=== PATIENT | male | born 1970 | race Caucasian/White ===

== ENCOUNTER 2022-11-06 21:36 | Observation (INO) | payer BC ==
[2022-11-06 22:19] LABS: Absolute Lymphocytes (CBC) 2.4 K/uL (0.7-4.9); Hematocrit 44.8 % (39.6-49.0); Lymphocytes % 27.2 % (15.3-44.8); MCV 85.4 fL (80-100); MPV 7.6 fL (7.6-11.3); RBC Red Blood Cell Count 5.24 M/uL (4.33-5.43)
[2022-11-06 22:25] LABS: Protime INR 1.54
[2022-11-06] MEDS ORDERED: dilTIAZem HCL 25 MG/5 ML VIAL IV ONE (22:25)
[2022-11-06] MEDS ORDERED: NA CHLORIDE 0.9% 1,000 ML ONE (22:25)
[2022-11-06] MEDS ORDERED: ASPIRIN 81 MG CHEWABLE TABLET ONE (22:26)
[2022-11-06] MEDS ORDERED: NA CHLORIDE 0.9% 100 ML ONE (22:26)
[2022-11-06 22:41] LABS: Albumin 3.9 g/dL (3.4-5.0); Bilirubin Direct 0.2 mg/dL (0-0.2); Bilirubin Indirect, Calculated 0.4 mg/dL (0.2-0.8); Bilirubin Total 0.6 mg/dL (0.2-1.0); Magnesium 1.9 mg/dL (1.6-2.4); Potassium 4.2 mEq/L (3.5-5.1); Protein, Total 7.6 g/dL (6.4-8.2); Troponin High Sensitivity 33.6 pg/mL (<58.9)
--- NOTE | 2022-11-06 22:43 | RAD REPORT ---
EXAM DESCRIPTION: Cristel Single View11/06/2022 10:23 pm CLINICAL HISTORY: CHEST PAIN COMPARISON: No comparisons TECHNIQUE: Portable AP view of the chest. FINDINGS: The lungs are clear. No pneumothorax or effusion. The cardiomediastinal contours are unre markable. IMPRESSION: No acute cardiopulmonary process.
[2022-11-07] MEDS ORDERED: NA CHLORIDE 0.9% 1,000 ML ONE (00:34)
--- NOTE | 2022-11-07 03:15 | ER ---
Nurse's Notes [facility] Name: Tom Soriano Age: 52 yrs Sex: Male : 1970 Arrival Date: 11/06/2022 Time: 21:36 Bed 18 Private MD: Diagnosis: Unspecified atrial flutter;Atrial flutter with rapid ventricular response Presentation: 11/06 21:47 Chief complaint: Patient states: States my watch was telling me that my HR was in the ll3 160s, upon arrival pt HR is 162, denies SBO, CP, or palpations, denies pain. Coronavirus screen: Vaccine status: Patient reports receiving the 2nd dose of the covid vaccine. At this time, the client does not indicate any symptoms associated with coronavirus-19. Ebola Screen: No symptoms or risks identified at this time. Initial Sepsis Screen: Does the patient meet any 2 criteria? HR > 90 bpm. Yes Does the patient have a suspected source of infection? No. Patient's initial sepsis screen is negative. Risk Assessment: Do you want to hurt yourself or someone else? Patient reports no desire to harm self or others. Onset of symptoms was November 06, 2022. 21:47 Method Of Arrival: Ambulatory ll3 21:47 Acuity: RENATA 2 ll3 Triage Assessment: 21:51 General: Appears comfortable, Behavior is calm, cooperative. Pain: Denies pain. ll3 Cardiovascular: Denies chest pain, Patient's skin is warm and dry. Respiratory: Respiratory effort is even, unlabored, Respiratory pattern is regular, symmetrical. Derm: Skin is pink, warm \T\ dry. Historical: - Allergies: 21:50 No Known Allergies; ll3 - PMHx: 21:50 Hypertensive disorder; Hypercholesterolemia; Diabetes mellitus; Atrial fibrillation; ll3 - PSHx: 21:51 cardiac ablasion; ll3 - Immunization history:: Client reports receiving the 2nd dose of the Covid vaccine. - Social history:: Smoking status: Patient denies any tobacco usage or history of. - Family history:: not pertinent. Screenin:[facility] ED Fall Risk Assessment (Adult) History of falling in the last 3 months, vc1 including since admission No falls in past 3 months (0 pts) Confusion or Disorientation No (0 pts) Intoxicated or Sedated No (0 pts) Impaired Gait No (0 pts) Mobility Assist Device Used No (0 pt) Altered Elimination No (0 pt) Score/Fall Risk Level 0 - 2 = Low Risk Oriented to surroundings, Maintained a safe environment, Educated pt \T\ family on fall prevention, incl call for assistance when getting out of bed. Abuse screen: Denies threats or abuse. Nutritional screening: No deficits noted. Tuberculosis screening: No symptoms or risk factors identified. Assessment: 22:00 Reassessment: See triage assessment. General: Appears in no apparent distress. vc1 comfortable, Behavior is calm, cooperative, appropriate for age. Cardiovascular: Reports None Patient's skin is warm and dry. Rhythm is sinus arrythmia. 23:00 Reassessment: No changes from previously documented assessment. Patient and/or family vc1 updated on plan of care and expected duration. Pain level reassessed. Patient is alert, oriented x 3, equal unlabored respirations, skin warm/dry/pink. 11/07 00:00 Reassessment: No changes from previously documented assessment. Patient and/or family vc1 updated on plan of care and expected duration. Pain level reassessed. Patient is alert, oriented x 3, equal unlabored respirations, skin warm/dry/pink. 00:00 Cardiovascular: Denies chest pain, Chest pain is denied. vc1 00:20 Reassessment: Pt heart rate back up to 106-124, cardizem drip restarted. vc1 00:20 Reassessment: Pt heart rate 80 showing a flutter on monitor. Cardizem drip paused per vc1 provider. 01:06 Reassessment: No changes from previously documented assessment. Patient and/or family vc1 updated on plan of care and expected duration. Pain level reassessed. Patient is alert, oriented x 3, equal unlabored respirations, skin warm/dry/pink. 02:00 Reassessment: No changes from previously documented assessment. Patient and/or family vc1 updated on plan of care and expected duration. Pain level reassessed. Patient is alert, oriented x 3, equal unlabored respirations, skin warm/dry/pink. Patient denies pain at this time. 03:00 Reassessment: No changes from previously documented assessment. Patient and/or family vc1 updated on plan of care and expected duration. Pain level reassessed. Patient is alert, oriented x 3, equal unlabored respirations, skin warm/dry/pink. Patient denies pain at this time. 04:00 Reassessment: No changes from previously documented assessment. Patient and/or family vc1 updated on plan of care and expected duration. Pain level reassessed. Patient is alert, oriented x 3, equal unlabored respirations, skin warm/dry/pink. Patient denies pain at this time. 07:00 Reassessment: Patient appears in no apparent distress at this time. Patient and/or db family updated on plan of care and expected duration. Pain level reassessed. Patient is alert, oriented x 3, equal unlabored respirations, skin warm/dry/pink. Report received. Upon receiving patient Cardizem drip has been stopped by previous shift RN. Pt HR is 77. General: Appears in no apparent distress. comfortable, Behavior is calm, cooperative. Neuro: Level of Consciousness is awake, alert, obeys commands, Oriented to person, place, time, situation. Respiratory: Airway is patent Respiratory effort is even, unlabored, Respiratory pattern is regular, symmetrical. 07:17 Reassessment: Called ICU to give report. States they do not have clean beds and that db there is not a nurse assigned to the room. States will call back when ready to receive report. Vital Signs: 11/06 21:47 BP 108 / 90; Pulse 161; Resp 17; Temp 99.1(O); Pulse Ox 96% on R/A; Weight 111.13 kg ll3 (R); Height 5 ft. 10 in. (R); Pain 0/10; 22:53 BP 109 / 60; Pulse 112; Resp 17; Pulse Ox 95% ; vc1 23:00 BP 122 / 82; Pulse 137; Resp 33; Pulse Ox 97% ; vc1 23:15 BP 104 / 62; Pulse 107; Resp 15; Pulse Ox 96% ; vc1 23:30 BP 96 / 70; Pulse 80; Resp 21; Pulse Ox 96% ; vc1 23:45 BP 90 / 63; Pulse 106; Resp 21; Pulse Ox 95% ; vc1 11/07 00:00 BP 98 / 67; Pulse 80; Resp 21; Pulse Ox 95% ; vc1 00:15 BP 92 / 61; Pulse 124; Resp 18; Pulse Ox 95% ; vc1 00:30 BP 98 / 68; Pulse 113; Resp 18; Pulse Ox 96% ; vc1 00:45 BP 102 / 59; Pulse 106; Resp 16; Pulse Ox 96% ; vc1 01:00 BP 100 / 77; Pulse 108; Resp 16; Pulse Ox 95% ; vc1 01:15 BP 100 / 77; Pulse 132; Resp 20; Pulse Ox 94% ; vc1 01:30 BP 112 / 71; Pulse 121; Resp 18; Pulse Ox 95% ; vc1 01:45 BP 104 / 75; Pulse 99; Resp 20; Pulse Ox 95% ; vc1 02:00 BP 106 / 65; Pulse 105; Resp 20; Pulse Ox 96% ; vc1 02:15 BP 105 / 68; Pulse 94; Resp 20; Pulse Ox 94% ; vc1 02:30 BP 95 / 69; Pulse 118; Resp 17; Pulse Ox 97% ; vc1 02:45 BP 91 / 72; Pulse 83; Resp 13; Pulse Ox 95% ; vc1 03:00 BP 99 / 64; Pulse 105; Resp 18; Pulse Ox 96% ; vc1 03:15 BP 93 / 70; Pulse 79; Resp 20; Pulse Ox 95% ; vc1 03:30 BP 100 / 67; Pulse 82; Resp 22; Temp 96; vc1 03:45 BP 97 / 67; Pulse 118; Resp 16; Pulse Ox 96% ; vc1 04:00 BP 113 / 77; Pulse 102; Resp 17; Pulse Ox 95% ; vc1 07:00 BP 94 / 58; Pulse 77; Resp 18; Pulse Ox 97% ; db 11/06 21:47 Body Mass Index 35.15 (111.13 kg, 177.8 cm) ll3 11/06 21:47 Pain Scale: Adult ll3 ED Course: 11/06 20:00 Inserted saline lock: 20 gauge in left antecubital area, using aseptic technique. Blood vc1 collected. 21:42 Patient arrived in ED. [id number] 21:50 Triage completed. ll3 21:51 Arm band placed on right wrist. Patient placed in an exam room, on a stretcher, on ll3 telemetry monitor, on pulse oximetry, Patient's private physician notified. 21:54 Dedrick Irwin MD is Attending Physician. sp4 22:00 Patient has correct armband on for positive identification. Bed in low position. Call vc1 light in reach. Client placed on continuous cardiac and pulse oximetry monitoring. NIBP monitoring applied. 22:25 XRAY Chest (1 view) In Process Unspecified. EDMS 22:40 Jojo Sibley RN is Primary Nurse. vc1 11/07 03:13 Jeramy Lucio MD is Hospitalizing Provider. sp4 04:00 No provider procedures requiring assistance completed. Patient admitted, IV remains in vc1 place. Administered Medications: 11/06 22:36 Drug: Diltiazem IVP 10 mg Route: IVP; Site: left antecubital; vc1 23:00 Follow up: Response: No adverse reaction; No change in condition vc1 22:36 Drug: Aspirin PO Chewable Tablet 324 mg Route: PO; vc1 23:00 Follow up: Response: No adverse reaction vc1 22:37 Drug: NS 0.9% IV 1000 ml Route: IV; Rate: 1 bolus; Site: left antecubital; vc1 23:37 Follow up: IV Status: Completed infusion; IV Intake: 1000ml vc1 22:37 Drug: Diltiazem IV 5 mg/hr Route: IV; Rate: calculated rate; Site: left antecubital; vc1 11/07 05:45 Follow up: IV Status: Infusion continued upon admission vc1 00:28 Drug: NS 0.9% IV 1000 ml Route: IV; Rate: 125 ml/hr; Site: left antecubital; vc1 04:30 Follow up: IV Status: Infusion continued upon admission vc1 04:01 Drug: Diltiazem PO 60 mg Route: PO; vc1 05:44 Follow up: Response: No adverse reaction vc1 04:01 Drug: Albumin IVPB 25 grams Volume: 100 ml; Route: IVPB; Site: left antecubital; vc1 04:52 Follow up: IV Status: Completed infusion; IV Intake: 100ml vc1 04:53 Drug: Albumin IVPB 25 grams Volume: 100 ml; Route: IVPB; Site: left antecubital; vc1 05:46 Follow up: IV Status: Completed infusion; IV Intake: 100ml vc1 Medication: 11/06 22:41 VIS not applicable for this client. vc1 Intake: 23:37 IV: 1000ml; Total: 1000ml. vc1 11/07 04:52 IV: 100ml; Total: 1100ml. vc1 05:46 IV: 100ml; Total: 1200ml. vc1 Outcome: 03:14 Decision to Hospitalize by Provider. sp4 04:00 Admitted to ER Hold. Please see [facility] for further documentation. vc1 04:00 Condition: good 04:00 Instructed on the need for admit. 08:31 Patient left the ED. Signatures: Dispatcher [employer] EDMS Georgia Chavez RN RN VidalMakenzie [email or web address] Maikel Daley RN RN ll3 Jojo Sibley RN RN vc1 Pat Stauffer RN RN db Dedrick Irwin MD MD sp4 Corrections: (The following items were deleted from the chart) 11/06 22:37 22:37 Diltiazem IVP 10 mg IVP in right antecubital vc1 vc1 11/07 02:31 02:15 BP 105 / 68; Pulse 94bpm; Resp 0bpm; Pulse Ox 94%; vc1 vc1 07:43 07:17 Reassessment: Called ICU to give report. States they do not have clean beds and db that there is not a nurse assigned to the room. States will call back when ready to receive report. db
--- NOTE | 2022-11-07 03:15 | EDPHYS ---
Physician Documentation [facility] Name: Tom Soriano Age: 52 yrs Sex: Male : 1970 Arrival Date: 11/06/2022 Time: 21:36 Bed 18 Private MD: ED Physician Dedrick Irwin HPI: 11/06 21:55 This 52 yrs old Male presents to ER via Ambulatory with complaints of sp4 ELEVATED HEART RATE. 22:10 52-year-old male presents with a cute onset of elevated heart rate starting this sp4 evening that he has noticed on his Apple Watch. Patient states [place] the beach [place] and [place] time at the beach when his Apple Watch alerted him to elevated heart rate. Patient has history of atrial fibrillation. History of diabetes history of hypertension . His medications include metoprolol 25 mg p.o. twice a day, losartan 100 mg daily, rosuvastatin 10 mg daily, metformin 1000 mg twice a day, Multaq 400 mg twice a day, Eliquis 5 mg twice a day, Aldactone 25 mg daily. . Patient denied any chest pain, palpitations, shortness of breath, or dizziness.. Multaq or dronedarone 400 mg twice a day apparently is used for persistent atrial fibrillation prevention. Historical: - Allergies: 21:50 No Known Allergies; ll3 - PMHx: 21:50 Hypertensive disorder; Hypercholesterolemia; Diabetes mellitus; Atrial fibrillation; ll3 - PSHx: 21:51 cardiac ablasion; ll3 - Immunization history:: Client reports receiving the 2nd dose of the Covid vaccine. - Social history:: Smoking status: Patient denies any tobacco usage or history of. - Family history:: not pertinent. ROS: 22:10 Constitutional: Negative for fever, chills, and weight loss, Eyes: Negative for injury, sp4 pain, redness, and discharge, ENT: Negative for injury, pain, and discharge, Neck: Negative for injury, pain, and swelling, Cardiovascular: Negative for chest pain, palpitations, and edema, Respiratory: Negative for shortness of breath, cough, wheezing, and pleuritic chest pain, Abdomen/GI: Negative for abdominal pain, nausea, vomiting, diarrhea, and constipation, Back: Negative for injury and pain, : Negative for injury, bleeding, discharge, and swelling, MS/Extremity: Negative for injury and deformity, Skin: Negative for injury, rash, and discoloration, Neuro: Negative for headache, weakness, numbness, tingling, and seizure, Psych: Negative for depression, anxiety, Allergy/Immunology: Negative for hives, rash, and allergies Endocrine: Negative for neck swelling, polydipsia, polyuria, polyphagia, and weight changes Hematologic/Lymphatic: Negative for swollen nodes, abnormal bleeding, and unusual bruising Exam: 22:10 Constitutional: This is a well developed, well nourished patient who is awake, alert, sp4 and in no acute distress. Head/Face: Normocephalic, atraumatic. Eyes: Pupils equal round and reactive to light, extra-ocular motions intact. Lids and lashes normal. Conjunctiva and sclera are not injected. Cornea within normal limits. Periorbital areas with no swelling, redness, or edema. ENT: Nares patent. No nasal discharge, no septal abnormalities noted. Tympanic membranes are normal and external auditory canals are clear. Oropharynx with no redness, swelling, or masses, exudates, or evidence of obstruction, uvula midline. Mucous membranes moist. Neck: Trachea midline, no thyromegaly or masses palpated, and no cervical lymphadenopathy. Supple, full range of motion without nuchal rigidity, or vertebral point tenderness. Chest/axilla: Normal chest wall appearance and motion. Nontender with no deformity. No lesions are appreciated. Cardiovascular: Rapid irregular tachycardia, no gallops, murmurs, or rubs. Normal PMI, no JVD. No pulse deficits. Respiratory: Lungs have equal breath sounds bilaterally, clear to auscultation and percussion. No rales, rhonchi or wheezes noted. No increased work of breathing, no retractions or nasal flaring. Abdomen/GI: Soft, non-tender, with normal bowel sounds. No distension or tympany. No guarding or rebound. No evidence of tenderness throughout. Back: No spinal tenderness. No costovertebral tenderness. Skin: Warm, dry with normal turgor. Normal color with no rashes, no lesions, and no evidence of cellulitis. MS/ Extremity: Pulses equal, no cyanosis. Neurovascular intact. Full, normal range of motion. Neuro: Awake and alert, GCS 15, oriented to person, place, time, and situation. Cranial nerves II-XII grossly intact. Motor strength 5/5 in all extremities. Sensory grossly intact. Psych: Awake, alert, with orientation to person, place and time. Behavior, mood, and affect are within normal limits 22:16 ECG was reviewed by the Attending Physician. EKG rate 161, EKG time 2159, there is sp4 atrial flutter 2-1 AV conduction, with a rightward axis, no ST elevation visualized 11/07 03:15 Repeat EKG at 2353 atrial flutter with arrival AV block with PVCs prolonged QT, rate sp4 96, no ST elevation or depression. Vital Signs: 11/06 21:47 BP 108 / 90; Pulse 161; Resp 17; Temp 99.1(O); Pulse Ox 96% on R/A; Weight 111.13 kg ll3 (R); Height 5 ft. 10 in. (R); Pain 0/10; 22:53 BP 109 / 60; Pulse 112; Resp 17; Pulse Ox 95% ; vc1 23:00 BP 122 / 82; Pulse 137; Resp 33; Pulse Ox 97% ; vc1 23:15 BP 104 / 62; Pulse 107; Resp 15; Pulse Ox 96% ; vc1 23:30 BP 96 / 70; Pulse 80; Resp 21; Pulse Ox 96% ; vc1 23:45 BP 90 / 63; Pulse 106; Resp 21; Pulse Ox 95% ; vc1 11/07 00:00 BP 98 / 67; Pulse 80; Resp 21; Pulse Ox 95% ; vc1 00:15 BP 92 / 61; Pulse 124; Resp 18; Pulse Ox 95% ; vc1 00:30 BP 98 / 68; Pulse 113; Resp 18; Pulse Ox 96% ; vc1 00:45 BP 102 / 59; Pulse 106; Resp 16; Pulse Ox 96% ; vc1 01:00 BP 100 / 77; Pulse 108; Resp 16; Pulse Ox 95% ; vc1 01:15 BP 100 / 77; Pulse 132; Resp 20; Pulse Ox 94% ; vc1 01:30 BP 112 / 71; Pulse 121; Resp 18; Pulse Ox 95% ; vc1 01:45 BP 104 / 75; Pulse 99; Resp 20; Pulse Ox 95% ; vc1 02:00 BP 106 / 65; Pulse 105; Resp 20; Pulse Ox 96% ; vc1 02:15 BP 105 / 68; Pulse 94; Resp 20; Pulse Ox 94% ; vc1 02:30 BP 95 / 69; Pulse 118; Resp 17; Pulse Ox 97% ; vc1 02:45 BP 91 / 72; Pulse 83; Resp 13; Pulse Ox 95% ; vc1 03:00 BP 99 / 64; Pulse 105; Resp 18; Pulse Ox 96% ; vc1 03:15 BP 93 / 70; Pulse 79; Resp 20; Pulse Ox 95% ; vc1 03:30 BP 100 / 67; Pulse 82; Resp 22; Temp 96; vc1 03:45 BP 97 / 67; Pulse 118; Resp 16; Pulse Ox 96% ; vc1 04:00 BP 113 / 77; Pulse 102; Resp 17; Pulse Ox 95% ; vc1 07:00 BP 94 / 58; Pulse 77; Resp 18; Pulse Ox 97% ; db 11/06 21:47 Body Mass Index 35.15 (111.13 kg, 177.8 cm) ll3 11/06 21:47 Pain Scale: Adult ll3 MDM: 11/06 22:15 Patient medically screened. sp4 11/07 03:16 Differential Diagnosis Atrial fibrillation with RVR, atrial flutter with RVR, SVT, sp4 ventricular arrhythmia, narrow complex tachycardia. Data reviewed: vital signs, nurses notes, old medical records, lab test result(s), cardiac enzymes, CBC, electrolytes, hepatic panel, EKG, radiologic studies, plain films. Consideration of Admission/Observation Patient was admitted/placed on observation. Escalation of care including admission/observation considered. Management of patient was discussed with the following: Hospitalist: Discussed with admitting hospitalist team . [employer] Registrar: Discussed with fundraising consultant. ED course: Repeat EKG reveals atrial flutter with arrival AV block, patient did slow down significantly with IV Cardizem infusion as low as 79 bpm. Pressure remains low but stable 99/64. Provide IV albumin to improve blood pressure. Patient at this time may be admitted to telemetry floor , Will switch to p.o. Cardizem in emergency department. 03:18 ED course: Labs today reveal mild elevated creatinine 1.37, normal CBC, normal LFT, sp4 negative troponin 33.6, however BNP is elevated 1487. Chest x-ray reveals no acute cardiopulmonary process no signs of acute heart failure. 11/06 22:04 Order name: Basic Metabolic Panel; Complete Time: 00:18 sp4 11/06 22:04 Order name: CBC with Diff; Complete Time: 00:18 sp4 11/06 22:04 Order name: LFT's; Complete Time: 00:18 sp4 11/06 22:04 Order name: Magnesium; Complete Time: 00:18 sp4 11/06 22:04 Order name: NT PRO-BNP; Complete Time: 00:18 sp4 11/06 22:04 Order name: PT-INR; Complete Time: 00:18 sp4 11/06 22:04 Order name: Troponin HS; Complete Time: 00:18 sp4 11/07 03:35 Order name: Basic Metabolic Panel EDMS 11/07 03:35 Order name: CBC with Automated Diff EDMS 11/07 03:35 Order name: Protime (+INR) EDMS 11/07 03:35 Order name: Magnesium EDMS 11/07 03:35 Order name: Magnesium EDMS 11/07 03:35 Order name: Magnesium EDMS 11/07 08:05 Order name: Glucose, Ancillary Testing EDMS 11/06 22:04 Order name: XRAY Chest (1 view); Complete Time: 00:18 sp4 11/06 22:04 Order name: EKG; Complete Time: 22:05 sp4 11/07 03:35 Order name: Heart Healthy EDMS 11/07 03:35 Order name: EKG Electrocardiogram EDMS 11/06 22:04 Order name: Cardiac monitoring; Complete Time: 22:36 sp4 11/06 22:04 Order name: EKG - Nurse/Tech; Complete Time: 22:36 sp4 11/06 22:04 Order name: IV Saline Lock; Complete Time: 22:36 sp4 11/06 22:04 Order name: Labs collected and sent; Complete Time: 22:36 sp4 11/06 22:04 Order name: O2 Per Protocol; Complete Time: 22:36 sp4 11/06 22:04 Order name: O2 Sat Monitoring; Complete Time: 22:36 sp4 EC/04 22:16 Rate is 161 beats/min. Rhythm is regular, A flutter. Right axis deviation noted. T sp4 waves are Normal. No ST changes noted. Interpreted by me. Administered Medications: 22:36 Drug: Diltiazem IVP 10 mg Route: IVP; Site: left antecubital; vc1 23:00 Follow up: Response: No adverse reaction; No change in condition vc1 22:36 Drug: Aspirin PO Chewable Tablet 324 mg Route: PO; vc1 23:00 Follow up: Response: No adverse reaction vc1 22:37 Drug: NS 0.9% IV 1000 ml Route: IV; Rate: 1 bolus; Site: left antecubital; vc1 23:37 Follow up: IV Status: Completed infusion; IV Intake: 1000ml vc1 22:37 Drug: Diltiazem IV 5 mg/hr Route: IV; Rate: calculated rate; Site: left antecubital; vc1 11/07 05:45 Follow up: IV Status: Infusion continued upon admission vc1 00:28 Drug: NS 0.9% IV 1000 ml Route: IV; Rate: 125 ml/hr; Site: left antecubital; vc1 04:30 Follow up: IV Status: Infusion continued upon admission vc1 04:01 Drug: Diltiazem PO 60 mg Route: PO; vc1 05:44 Follow up: Response: No adverse reaction vc1 04:01 Drug: Albumin IVPB 25 grams Volume: 100 ml; Route: IVPB; Site: left antecubital; vc1 04:52 Follow up: IV Status: Completed infusion; IV Intake: 100ml vc1 04:53 Drug: Albumin IVPB 25 grams Volume: 100 ml; Route: IVPB; Site: left antecubital; vc1 05:46 Follow up: IV Status: Completed infusion; IV Intake: 100ml vc1 Disposition Summary: 11/07/22 03:14 Hospitalization Ordered Hospitalization Status: Inpatient Admission sp4 Provider: Jeramy Lucio Condition: Stable sp4 Problem: new sp4 Symptoms: have improved sp4 Bed/Room Type: Standard sp4 Location: Intensive Care Unit(11/07/22 07:13) rv1 Room Assignment: 5-(11/07/22 07:13) rv1 Diagnosis - Unspecified atrial flutter sp4 - Atrial flutter with rapid ventricular response sp4 Forms: - Medication Reconciliation Form sp4 - SBAR form sp4 Signatures: Dispatcher [employer] EDClaudia Nava RN RN mw Blanchard, Shelby, RN RN ss Maikel Daley RN RN 3 Jojo Sibley RN RN vc1 Nadeen Gibson rv1 Dedrick Irwin MD MD sp4 Corrections: (The following items were deleted from the chart) 04:00 03:14 Telemetry/MedSurg (Inpatient) sp4 vc1 04:00 03:14 sp4 vc1 04:09 04:00 Intensive Care Unit vc1 mw 04:09 04:00 vc1 mw 07:13 04:09 [facility] ER HOLD mw ss 07:13 04:09 ERHOLD- mw ss 07:13 07:13 Intensive Care Unit ss rv1 07:13 07:13 5- ss rv1
[2022-11-07] MEDS ORDERED: ACETAMINOPHEN 500 MG TAB PO PRN (03:27)
[2022-11-07] MEDS ORDERED: ONDANSETRON 4 MG/2 ML VIAL IV PRN (03:27)
--- NOTE | 2022-11-07 03:27 | P.HP ---
Certification for Inpatient With expected LOS: <2 Midnights Patient will require the following post-hospital care: None Practitioner: I am a practitioner with admitting privileges, knowledge of patient current condition, hospital course, and medical plan of care. Services: Services provided to patient in accordance with Admission requirements found in Title 42 Section 412.3 of the Code of Federal Regulations <Deidre Vela - Last Filed: 11/07/22 04:39> Patient History Date of Service: 11/07/22 Reason for admission: elevated heart rate History of Present Illness: 52-year-old male with past medical history of HTN, Atrial fibrillation on eliquis, HLD, diabetes presents with elevated heart rate. He reports no symptoms, he put on his apple watch noted elevated heart rate. He is here on vacation. He reports history of afib/alutter with x2 cardioversion at [facility] [place] with Dr Mendes. He reports medication compliance. He denies shortness of breath, chest pain, edema, dizziness, diaphoresis. His medications include metoprolol 25 mg p.o. twice a day, losartan 100 mg daily, rosuvastatin 10 mg daily, metformin 1000 mg twice a day, Multaq 400 mg twice a day, Eliquis 5 mg twice a day, Aldactone 25 mg daily. . Patient denied any chest pain, palpitations, shortness of breath, or dizziness.. Multaq or dronedarone 400 mg twice a day apparently is used for persistent atrial fibrillation prevention. Home medications list reviewed: Yes - Past Medical/Surgical History Diabetic: Yes -: Atrial Fibrillation -: Atrial Flutter -: Hyperlipidemia -: Hypertension -: Diabetes type 2 -: x2 [place] -: Cardioversion - Family History Mother -: Heart disease, Other (see notes) (atrial fibrillation) - Social History Smoking Status: Never smoker Alcohol use: Yes Caffeine use: Yes Place of Residence: Home <Deidre Vela - Last Filed: 11/07/22 04:39> Date of Service: 11/07/22 <Jeramy Lucio - Last Filed: 11/07/22 14:59> Allergies No Known Allergies Allergy (Unverified 11/07/22 04:11) Home Medications: Apixaban [Eliquis] 5 mg PO BID 11/07/22 Dronedarone HCl [Multaq] 400 mg PO BID 11/07/22 Losartan Potassium 100 mg PO DAILY 11/07/22 Metformin HCl 1,000 mg PO BID 11/07/22 Metoprolol Tartrate [Lopressor*] 25 mg PO BID 11/07/22 Rosuvastatin [Crestor*] 10 mg PO BEDTIME 11/07/22 Physical Examination - Physical Exam General: Alert, In no apparent distress, Oriented x3 HEENT: Atraumatic, Normocephalic, PERRLA Neck: Supple, 2+ carotid pulse no bruit Respiratory: Clear to auscultation bilaterally, Normal air movement Cardiovascular: No edema, Normal pulses, Irregular heart rate/rhythm Capillary refill: <2 Seconds Gastrointestinal: Normal bowel sounds Musculoskeletal: No clubbing, No swelling Integumentary: No rashes, No breakdown Neurological: Normal speech, Cranial nerves 3-12 intact - Studies Laboratory Data (last 24 hrs) 11/06/22 22:12: PT 16.9 H, INR 1.54 11/06/22 22:12: WBC 8.80, Hgb 14.3, Hct 44.8, Plt Count 394 11/06/22 22:12: Sodium 138, Potassium 4.2, BUN 17, Creatinine 1.37 H, Glucose 103, Magnesium 1.9, Total Bilirubin 0.6, AST 30, ALT 43, Alkaline Phosphatase 82 <eDidre Vela - Last Filed: 11/07/22 04:39> - Studies Laboratory Data (last 24 hrs) 11/06/22 22:12: PT 16.9 H, INR 1.54 11/06/22 22:12: WBC 8.80, Hgb 14.3, Hct 44.8, Plt Count 394 11/06/22 22:12: Sodium 138, Potassium 4.2, BUN 17, Creatinine 1.37 H, Glucose 103, Magnesium 1.9, Total Bilirubin 0.6, AST 30, ALT 43, Alkaline Phosphatase 82 <Jeramy Lucio - Last Filed: 11/07/22 14:59> Assessment and Plan - Problems (Diagnosis) (1) Abnormal EKG Current Visit: Yes Status: Acute Plan: Abnormal EKG X 2 Reviewed with Cardiology per ED MD, No STEMI x 2 EKG sent confirmed Continue Telemetry Patient has zero compliant of Chest pain (2) Atrial flutter Onset Date: ~11/06/22 Current Visit: Yes Status: Acute Plan: Admit to ICU Telemetry cardioversion in ED Cardiology Consult Cardizem gtt, Resume home medications for rate control (3) Atrial fibrillation Onset Date: ~11/06/22 Current Visit: Yes Status: Acute Plan: Cardizem GTT Resume medications for rate control cardiology Consult (4) Hypertension Current Visit: Yes Status: Chronic Plan: resume approp home medications Qualifiers: Hypertension type: primary hypertension Qualified Code(s): I10 - Essential (primary) hypertension (5) Combined hyperlipidemia Current Visit: Yes Status: Chronic Plan: Resume approp home medications (6) Diabetes type 2, controlled Current Visit: Yes Status: Chronic Plan: AC AC HS, SSI Diabetic Diet (7) Chronic anticoagulation Current Visit: Yes Status: Acute Plan: Continue eliquis PT/INR in am Discharge Plan: Home Plan to discharge in: 24 Hours - Advance Directives Does patient have a Living Will: No Does patient have a Durable POA for Healthcare: No - Code Status/Comfort Care Code Status Assessed: Yes Code Status: Full Code Physician Review: Patient Assessed, Agree with Above Assessment and Plan Critical Care: Yes Time Spent Managing Pts Care (In Minutes): 70 <Deidre Vela - Last Filed: 11/07/22 04:39> Physician Review Additional Text: Patient seen and examined on rounds this morning Continues in A-fib Blood pressure 90s systolic in the ED, with some slight improvement this morning on arrival to the ICU. On Cardizem drip Briefly discussed with cardiology, recommended to discontinue Cardizem drip, start sotalol 80 mg twice daily patient denies dyspnea/chest pain / palpitations Per patient and : He started with Covid last year, then later developed afib, was told he had EF in 40s A few weeks ago hospitalized for shortness of breath and had >10lb weight gain, found to have pulmonary edema His medications were changed and he received diuretics - losartan/lisinopril was changed and he diuresed quickly within 1-2 days On repeat echo, he was told he had EF: ~35% recently. For afib, he was on cardizem, underwent ablation, and cardioverted twice - with most recent cardioversion this past (11/01). After cardioversion, he was started on / prescribed Multaq, which is a new med for him in the last few days. He is here on vacation, [place] the [place] in the sun, hydrating with water. No recent illness, no new meds, no alcohol. <Jeramy Lucio - Last Filed: 11/07/22 14:59>
[2022-11-07] MEDS ORDERED: ALBUMIN HUMAN 25% 200 ML IV ONE (03:44)
[2022-11-07] MEDS ORDERED: DILTIAZEM HCL 60 MG TAB ONE (03:45)
[2022-11-07] MEDS ORDERED: DILTIAZEM INJ 125 MG/25 ML 125 MG in NA CHLORIDE 0.9% 100 ML IV SCH (05:00)
[2022-11-07 05:36] VITALS: BMI 35.1
[2022-11-07 06:40] LABS: Absolute Lymphocytes (CBC) 1.7 K/uL (0.7-4.9); Hematocrit 40.1 % (39.6-49.0); Lymphocytes % 23.6 % (15.3-44.8); MCV 85.2 fL (80-100); MPV 7.7 fL (7.6-11.3); RBC Red Blood Cell Count 4.71 M/uL (4.33-5.43)
[2022-11-07 06:41] LABS: Protime INR 1.64
[2022-11-07] MEDS: INSULIN -REGULAR HUMAN 50 UNIT/0.5 ML ML SQ SCH ×4 (07:30→21:00)
--- NOTE | 2022-11-07 07:53 | P.PN ---
Date of Service: 11/08/22 Subjective: remains in afib/aflutter, HR in 120s no new / worsening problems denies chest pain, breathing feels fine ROS: 10 point ROS as noted above, otherwise negative Physical Exam: GEN: Alert, oriented, NAD HEENT: Normal conjunctiva, sclera anicteric CV: Regular rate and rhythm, no edema Pulm: Nonlabored respirations on room air ABD: Soft, nontender, nondistended MSK: No joint tenderness Integumentary: No rashes Neuro: Normal speech, normal affect vitals reviewed Problem List: Atrial Fibrillation Hypertension Hyperlipidemia DM2 VTE: Code: Dispo:
[2022-11-07] MEDS: SOTALOL HCL 80 MG TAB PO SCH ×2 (10:56→17:14)
--- NOTE | 2022-11-07 12:27 | EKG ---
Test Date: 2022-11-07 Test Time: 04:28:34 Out And Out Cigar Maker Hand: KELLEE MEASUREMENT RESULTS: Intervals: Rate: 96 ND: QRSD: 78 QT: 388 QTc: 490 [place]: P: 86 ND: QRS: 82 T: 91 INTERPRETIVE STATEMENTS: Atrial flutter with variable AV block Lateral infarct, age undetermined Inferior injury pattern ACUTE DC / STEMI Abnormal ECG Compared to ECG 11/06/2022 23:53:58 Ventricular premature complex(es) no longer present ST (T wave) deviation no longer present Prolonged QT interval no longer present Myocardial infarct finding still present Electronically Signed On 11-07-22 12:27:30 CDT by Jimi Bonds
--- NOTE | 2022-11-07 12:28 | EKG ---
Test Date: 2022-11-06 Test Time: 23:53:58 Silverware Buffer: RONEY MEASUREMENT RESULTS: Intervals: Rate: 96 [place]: QRSD: 78 QT: 400 QTc: 505 [place]: P: VA: QRS: 65 T: 99 INTERPRETIVE STATEMENTS: Atrial flutter with variable AV block with premature ventricular or aberrantly conducted complexes ST elevation, consider inferior injury or acute infarct Prolonged QT Abnormal ECG Compared to ECG 11/06/2022 23:52:23 Ventricular premature complex(es) now present Prolonged QT interval now present ST (T wave) deviation still present Electronically Signed On 11-07-22 12:27:54 CDT by Jimi Bonds
--- NOTE | 2022-11-07 12:29 | EKG ---
Test Date: 2022-11-06 Test Time: 21:59:21 Remedy Developer: LL MEASUREMENT RESULTS: Intervals: Rate: 161 MA: QRSD: 86 QT: 252 QTc: 412 [place]: P: MA: QRS: 100 T: 67 INTERPRETIVE STATEMENTS: Atrial flutter with 2:1 AV conduction Rightward axis Abnormal ECG No previous ECG available for comparison Electronically Signed On 11-07-22 12:28:45 CDT by Jimi Bonds
--- NOTE | 2022-11-07 12:29 | EKG ---
Test Date: 2022-11-06 Test Time: 23:52:23 Insulation Hoseman: RONEY MEASUREMENT RESULTS: Intervals: Rate: 108 CT: 154 QRSD: 84 QT: 366 QTc: 490 [place]: P: 96 CT: 154 QRS: 67 T: 104 INTERPRETIVE STATEMENTS: Atrial flutter with RVR Abnormal ECG Compared to ECG 11/06/2022 21:59:21 Right-axis deviation no longer present Electronically Signed On 11-07-22 12:28:26 CDT by Jimi Bonds
[2022-11-07] MEDS: APIXABAN 5 MG TABLET PO SCH ×2 (13:32→21:03)
[2022-11-07 14:42] LABS: Troponin High Sensitivity 39.7 pg/mL (<58.9)
--- NOTE | 2022-11-07 16:51 | CON ---
Date of Consultation: 11/07/2022 Reason For Consultation: Atrial flutter with rapid ventricular response. History Of Present Illness: This is a 52-year-old male with history of hypertension, atrial fibrilla tion, dyslipidemia, diabetes, status post AFib ablation, comes in with palpitations and elevated hear t rate. He had a cardioversion recently and was placed on Multaq, no Eliquis. Feels well. No other symptoms. Past Medical History: Atrial fibrillation, dyslipidemia, hypertension, diabetes. Medications: Refer to reconciliation sheet for detailed list. Allergies: NO KNOWN DRUG ALLERGIES. Family History: No premature coronary artery disease or cancer. Social History: Does not smoke or drink. Does not use any drugs. Review of Systems: All systems reviewed and they were negative except what mentioned in HPI. Physical Examination: Vital Signs: Reviewed. Head and Neck: Pupils are equal, reactive to light. Intact eye movements. No JVD. No cervical lym phadenopathy. Neck is supple. Thyroid is not enlarged. Lungs: Clear to auscultation bilaterally. No rhonchi, wheezing, or crackles. No accessory muscle u se. Heart: Irregular. No extra sounds. Tachycardic. Abdomen: Soft, nontender. Bowel sounds positive. No organomegaly. No masses or hernia. No rigidi ty or rebound. Extremities: No edema, clubbing, or cyanosis. Intact pulses. Skin: No rash. Neurologic: Alert, awake. No acute focal deficits appreciated. Lymph Nodes: No cervical or axillary lymphadenopathy. Investigations: Labs were reviewed. Assessment And Recommendations: 1.Atrial flutter with rapid ventricular response. Start sotalol 80 mg twice a day, discontinue Mult aq, and resume Eliquis 5 mg twice a day and by tomorrow noon if continues to be in atrial flutter, we will perform JHONATHAN-guided cardioversion. 2.Elevated NT-proBNP, likely diastolic heart failure. Obtain an echocardiogram and reassess. /HELENE Voice ID: [id number] Report ID: [id number]
[2022-11-08 05:29] LABS: Magnesium 2.4 mg/dL (1.6-2.4); Potassium 3.9 mEq/L (3.5-5.1)
[2022-11-08] MEDS ORDERED: POTASSIUM 25 MEQ EFFERV TAB PO ONE (06:04)
[2022-11-08] MEDS: SOTALOL HCL 80 MG TAB PO SCH (06:17)
[2022-11-08] MEDS: INSULIN -REGULAR HUMAN 50 UNIT/0.5 ML ML SQ SCH ×2 (07:29→11:30)
[2022-11-08] MEDS: APIXABAN 5 MG TABLET PO SCH (08:52)
[2022-11-08 10:35] VITALS: TEMP 97.9
[2022-11-08] MEDS ORDERED: MIDAZOLAM HCL 10 ML ONE (11:18)
[2022-11-08] MEDS ORDERED: METOPROLOL TARTRATE 5 MG/5 ML INJ IV ONE (11:18)
[2022-11-08] MEDS ORDERED: HYDRALAZINE HCL 20 MG/ML VIAL ONE (11:18)
[2022-11-08] MEDS ORDERED: ATROPINE SULF 1 MG/10 ML SYR IV ONE (11:19)
[2022-11-08] MEDS ORDERED: FLUMAZENIL 0.1 MG/ML (5 mL VIAL) IV ONE (11:19)
[2022-11-08] MEDS ORDERED: LIDOCAINE VISCOUS 2% SOLN 15 ML UDC ONE (11:19)
[2022-11-08] MEDS ORDERED: PHENOL 1.4% ORAL SPRAY 180ML ONE (11:20)
[2022-11-08] MEDS ORDERED: NA CHLORIDE 0.9% 500 ML ONE (11:50)
[2022-11-08] MEDS ORDERED: ADENOSINE 6 MG/ 2ML VIAL IV ONE ×2 (12:32→12:34)
--- NOTE | 2022-11-08 13:35 | P.DS ---
Admission Date: 11/07/22 Discharge Date: 11/08/22 Disposition: ROUTINE DISCHARGE Discharge Condition: GOOD Reason for Admission: elevated heart rate Consultations: Cardiology - Dr. Bonds Brief History of Present Illness: 52 yo M, PMH: HTN, Atrial fibrillation on eliquis, HLD, diabetes Patient presents with elevated heart rate. He reports no symptoms, he put on his apple watch noted elevated heart rate. He is here on vacation. He reports history of afib/alutter with x2 cardioversion at [facility] with Dr Mendes. He reports medication compliance. He denies shortness of breath, chest pain, edema, dizziness, diaphoresis. Patient denied any chest pain, shortness of breath, or dizziness.His medications include metoprolol 25 mg p.o. twice a day, losartan 100 mg daily, rosuvastatin 10 mg daily, metformin 1000 mg twice a day, Multaq 400 mg twice a day, Eliquis 5 mg twice a day, Aldactone 25 mg daily. . Patient denied any chest pain, shortness of breath, or dizziness.. Multaq or dronedarone 400 mg twice a day apparently is used for persistent atrial fibrillation prevention. Hospital Course: Problem List: Atrial Fibrillation, paroxysmal Mitral Regurgitation, severe Hypertension Hyperlipidemia NIDDM2 Patient presented with palpitations and elevated heart rate. He was found to be in a-fib/a-flutter. Cardiology was consulted. He was initially treated with cardizem drip in the ER, and noted to have low blood pressure with minimal improvement of rhythm/rate. Dr. Bonds recommended discontinuation of cardizem and started Sotalol 80mg twice daily. He had slight improvement of his heart rate and more stable rate, but remained 110-120. On 11/08, Dr. Bonds performed a successful JHONATHAN guided cardioversion. He noted on JHONATHAN that there was severe mitral regurgitation that could not be appreciated well on TTE. Patient is to follow up with his Baseball Hand Sewer back home to discuss/plan need for a mitral valve replacement. Discussed with patient that he will now be taking sotalol in place of metoprolol/multaq New change in prescriptions: Start Sotalol Stop Metoprolol Stop Multaq continue other home medications as previously prescribed Follow up: PCP 3-5 days Cardiology within 1 week Physical Exam: GEN: Alert, oriented, NAD HEENT: Normal conjunctiva, sclera anicteric CV: Regular rate and rhythm, no edema Pulm: Nonlabored respirations on room air ABD: Soft, nontender, nondistended Neuro: Normal speech, normal affect Vital Signs/Physical Exam: Temp Pulse Resp BP Pulse Ox 97.9 F 95 H 26 H 87/48 L 96 11/08/22 12:00 11/08/22 13:00 11/08/22 13:00 11/08/22 13:00 11/08/22 13:00 Laboratory Data at Discharge: WBC 7.30 thou/uL (4.3-10.9) 11/07/22 06:19 Hgb 13.0 g/dL (13.6-17.9) L D 11/07/22 06:19 Hct 40.1 % (39.6-49.0) 11/07/22 06:19 Plt Count 324 thou/uL (152-406) 11/07/22 06:19 PT 18.0 SECONDS (9.5-12.5) H 11/07/22 06:19 INR 1.64 11/07/22 06:19 Sodium 140 mEq/L (136-145) 11/08/22 04:05 Potassium 3.9 mEq/L (3.5-5.1) 11/08/22 04:05 BUN 17 mg/dL (7-18) 11/08/22 04:05 Creatinine 0.74 mg/dL (0.70-1.30) 11/08/22 04:05 Glucose 107 mg/dL (74-106) H 11/08/22 04:05 Phosphorus 4.0 mg/dL (2.5-4.9) 11/08/22 04:05 Magnesium 2.4 mg/dL (1.6-2.4) 11/08/22 04:05 Total Bilirubin 0.6 mg/dL (0.2-1.0) 11/06/22 22:12 AST 30 U/L (15-37) 11/06/22 22:12 ALT 43 U/L (16-61) 11/06/22 22:12 Alkaline Phosphatase 82 U/L (45-117) 11/06/22 22:12 Home Medications: Apixaban [Eliquis] 5 mg PO BID 11/07/22 Metformin HCl 1,000 mg PO BID 11/07/22 Rosuvastatin [Crestor*] 10 mg PO BEDTIME 11/07/22 Sotalol HCl [Betapace*] 80 mg PO BID 30 Days #60 tab 11/08/22 New Medications: Sotalol HCl [Betapace*] 80 mg PO BID 30 Days #60 tab Physician Discharge Instructions: PROBLEM: (list out Acute Problems for the Current visit) GOAL: Clear understanding of disease process INSTRUCTIONS: Patient presented with palpitations and elevated heart rate. He was found to be in a-fib/a-flutter. Cardiology was consulted. He was initially treated with cardizem drip in the ER, and noted to have low blood pressure with minimal improvement of rhythm/rate. Dr. Bonds recommended discontinuation of cardizem and started Sotalol 80mg twice daily. He had slight improvement of his heart rate and more stable rate, but remained 110-120. On 11/08, Dr. Bonds performed a successful JHONATHAN guided cardioversion. He noted on JHONATHAN that there was severe mitral regurgitation that could not be appreciated well on TTE. Patient is to follow up with his Baseball Hand Sewer back home to discuss/plan need for a mitral valve replacement. Discussed with patient that he will now be taking sotalol in place of metoprolol/multaq New change in prescriptions: Start Sotalol Stop Metoprolol Stop Multaq continue other home medications as previously prescribed Follow up: PCP 3-5 days Cardiology within 1 week If symptoms worsen, please go to the ER. If you have any questions or concerns regarding your hospital stay, feel free to call . Diet: Heart Healthy Activity: As tolerated DME DME: Date Ordered: Name of Company: [employer] Services Needed: None Name of Company: Date or Referral: IMMUNIZATION Influenza Vaccine Indicated: Influenza Vaccine Given: Date Given: Pneumonia Vaccine Indicated: No Pneumonia Vaccine Given: Date Given: Time spent managing pt's care (in minutes): 45
[2022-11-08 13:46] VITALS: O2SAT 95
[2022-11-08 16:52] VITALS: BP 100/61
--- NOTE | 2022-11-08 20:49 | PN ---
Subjective: Seen by bedside. Continues to be in flutter. Had a JHONATHAN-guided cardioversion, royce garciay converted him to sinus rhythm. However, the JHONATHAN showed severe mitral valve regurgitation. Patie nt does not have any chest pain or shortness of breath. No nausea, vomiting, or diarrhea. All other systems were reviewed and they were negative. Objective: Vital Signs: Reviewed. Head and Neck: Pupils are equal, reactive to light. Intact eye movements. No JVD. No cervical lym phadenopathy. Neck is supple. Thyroid is not enlarged. Lungs: Clear to auscultation bilaterally. No rhonchi, wheezing, or crackles. No accessory muscle u se. Heart: Irregular and tachycardic. Abdomen: Soft, nontender. Bowel sounds positive. No organomegaly. No masses or hernia. No rigidi ty or rebound. Extremities: No edema, clubbing, or cyanosis. Intact pulses. Skin: No rashes. Neuro: Alert, awake, oriented x3. No acute focal deficits appreciated. Investigations: BUN 17, creatinine 0.74, and hemoglobin is 13.0. Assessment And Recommendations: 1.Atrial flutter. Successful JHONATHAN-guided cardioversion. Continue sotalol and Eliquis and follow up with primary crushing machine operator. 2.Severe mitral valve regurgitation by a transesophageal echo. There is a systolic reversal of the pulmonary veins flow suggestive of severe mitral regurgitation, and I explained the situation to the patient and his family and the patient follows up with a crushing machine operator up in [place] and he is visiting in this area. So I asked the staff to burn a CD with the transesophageal echo images to show to the crushing machine operator next week where they have an appointment on Saturday and the patient will need mitral va lve repair plus Maze procedure and appendage closure and they verbalized understanding. From cardiology standpoint, patient can be released to follow up as an out patient. SR/MODL Voice ID: [id number] Report ID: [id number]
--- NOTE | 2022-11-09 04:34 | OP ---
Date of Procedure: 11/08/2022 Surgeon: ANGELO KERNS Procedures Performed: 1.Transesophageal echocardiogram. 2.Synchronized electrical cardioversion from atrial flutter to normal sinus rhythm. Indication: Atrial flutter. Description Of Procedure: After risks, benefits, alternatives explained, patient agreed to procedure and signed informed consent. Patient was in ICU, so procedure was done at bedside. After proper ti me-out, 5 mg of Versed was given and the back of the throat was numbed using viscous lidocaine prior to that, and then gave two more milligrams of Versed and the patient was adequately sedated. Then, T EE probe was inserted without difficulty. After performing the JHONATHAN, there was no thrombus in the lef t atrial appendage. I then removed the JHONATHAN probe and synchronized 200 joule. Electrical cardioversi on was performed successfully converting the rhythm into sinus rhythm. Conclusion: 1.Successful JHONATHAN-guided cardioversion into normal sinus rhythm. 2.Severe mitral valve regurgitation. SR/MODL Voice ID: [id number] Report ID: [id number]
--- NOTE | 2022-11-09 07:00 | TEE ---
TRANSESOPHAGEAL ECHOCARDIOGRAM REPORT CARDIOLOGY DEPARTMENT DATE OF STUDY: 11/08/2022 HEIGHT: 5'10" WEIGHT: 245 lbs DIAGNOSIS: ATRIAL FLUTTER DATA REPORTING ANALYST COMMENTS: JHONATHAN CARDIAC HISTORY: CATHERIZATION: SURGERY: PROSTHETIC VALVE: PACEMAKER: 2 DIMENSIONAL ASSESSMENT: RIGHT ATRIUM: LEFT ATRIUM: RIGHT VENTRICLE: LEFT VENTRICLE: TRICUSPID VALVE: MITRAL VALVE: PULMONIC VALVE: AORTIC VALVE: PERICARDIAL EFFUSION: AORTIC ROOT: EJECTION FRACTION: 55-60 % LEFT VENTRICULAR WALL MOTION: DOPPLER/COLOR FLOW: COMMENTS: 1. TRANSESOPHAGEAL ECHOCARDIOGRAM PROBE WAS INSERTED, NO DIFFICULTY 2. NORMAL LEFT VENTRICULAR EJECTION FRACTION 55-60% 3. SEVERE MITRAL REGURGITATION 4. NO LEFT ATRIAL APPENDAGE THROMBUS IS SEEN TECHNOLOGIST: ALEXANDR GRULLON
== END 2022-11-08 16:20 | disposition home or self-care (01) ==
LOC: ER 21:36 → ERHOLD 11-07 03:27 → 3RD-ICU 11-07 08:21
PROVIDERS: ADMIT Hospitalist; ATTEND Hospitalist
DX: I48.0 Paroxysmal atrial fibrillation (principal); I48.92 Unspecified atrial flutter; I34.0 Nonrheumatic mitral (valve) insufficiency; I10 Essential (primary) hypertension; E78.2 Mixed hyperlipidemia; E11.9 Type 2 diabetes mellitus without complications; I95.9 Hypotension, unspecified; Z98.890 Other specified postprocedural states; Z79.01 Long term (current) use of anticoagulants; Z79.84 Long term (current) use of oral hypoglycemic drugs; Z79.899 Other long term (current) drug therapy; Z82.49 Family history of ischemic heart disease and other diseases of the circulatory system
CPT/HCPCS: 36415; 71045; 80048; 80076; 82947; 83735; 83880; 84100; 84484; 85025; 85610; 92960; 93005; 93312; 96365; 96366; 96375; 99285; G0378; J0153; J0360; J0461; J2250; J7030; J7040; P9047